=== PATIENT | female | born 1940 | race Caucasian/White ===

== ENCOUNTER 2019-06-16 09:12 | Emergency (ER) | payer MEDICARE ==
--- OUTSIDE RECORDS SUMMARY | 2019-06-16 09:14 | XMS REPORT ---
:1940 [facility] Address [address] [place] [address] [address]. [address] [place] [address] Care Team Providers Name Role Phone Unavailable Unavailable Unavailable Problems This patient has no known problems. Allergies, Adverse Reactions, Alerts This patient has no known allergies or adverse reactions. Medications This patient has no known medications.
[2019-06-16] MEDS ORDERED: DIAZEPAM 10 MG/2 ML INJ SYRINGE ONE (10:00)
[2019-06-16] MEDS ORDERED: METHYLPREDNISOLONE 125 MG INJ ONE (10:00)
[2019-06-16] MEDS ORDERED: KETOROLAC 30 MG/ML INJ ONE (10:00)
[2019-06-16 10:35] LABS: Absolute Lymphocytes (CBC) 1.7 K/uL (0.7-4.9); Hematocrit 39.5 % (36.0-45.0); Lymphocytes % 19.8 % (15.3-44.8); MPV 6.7 fL (7.6-11.3); RBC Red Blood Cell Count 4.28 M/uL (3.86-4.86)
--- NOTE | 2019-06-16 10:38 | RAD REPORT ---
EXAM DESCRIPTION: CT - Spine Lumbar Wo Con - 06/16/2019 10:15 am CLINICAL HISTORY: Back pain, right lower extremity radiculopathy COMPARISON: Two view chest July 2017, lumbar spine June 2015 TECHNIQUE: Thin section axial imaging of the lumbar spine was performed. Sagittal and coronal recon struction images were generated and reviewed. All CT scans are performed using dose optimization technique as appropriate and may include automated exposure control or mA/KV adjustment according to patient size. FINDINGS: Lumbar vertebrae are normal in height. There is very slight retrolisthesis of L2 on L3 and L3 on L4. Approximately 15% wedge compression deformity of T12 is present. Posterior wall height is preserved. The partial compression is not clearly different from 2015. No lytic, blastic or expansile bony destructive changes seen. No paraspinal soft tissue mass component. T11-12 level: No canal or foramen stenosis. Degenerative disc and endplate changes present. T12-L1 level: No canals or foramen stenosis. Facet degenerative changes present. L1-L2 level: Degenerative disc changes with loss in height. Minimal disc bulge seen. No canal or fora men stenosis identified. Facet degenerative changes present. L2-3 level: Loss of disc height is significant. There is degenerative gas in the disc space. Prominen t disc bulge and endplate spurring changes are present. Bilateral foraminal stenosis present from dis c bulge and spurring. Central canal does not appear to be stenotic. There are facet degenerative joy ges present. These are very pronounced with ligamentous thickening changes. L3-4 level: Significant loss in disc height. Circumferential disc bulge and endplate spurring changes present. Facet degenerative changes are prominent. No central spinal stenosis. Bilateral foraminal s tenosis present. L4-5 level: Disc bulge without significant loss in disc height. No central spinal stenosis. Facet deg enerative change and ligamentous thickening present. Foraminal encroachment appears to be mild. L5-S1 level: No herniation or significant disc bulge. No canal or significant foramen stenosis. Facet degenerative changes are present. L3 pars interarticularis defects are present. Partially imaged SI joints show degenerative change but no worrisome finding. Central canal detail is inherently limited. IMPRESSION: No acute lumbar vertebral body finding. Partial compression of T12 appears similar to e 2014 lumbar spine examination. No herniation or significant stenosis in the central canal. Patient has significant foraminal stenosis changes at L2-3 and L3-4. L4-5 foraminal encroachment is p resent to a lesser degree.
[2019-06-16] MEDS ORDERED: ONDANSETRON 4 MG/2 ML VIAL ONE (10:42)
[2019-06-16] MEDS ORDERED: MORPHINE 4 MG/ML SYR ONE (10:42)
[2019-06-16 10:45] LABS: Potassium 3.6 mmol/L (3.5-5.1)
--- NOTE | 2019-06-16 11:53 | ER ---
Nurse's Notes [facility] Name: Sabi Solorzano Age: 79 yrs Sex: Female : 1940 Arrival Date: 06/16/2019 Time: 09:14 Bed 8 Private MD: Deejay Fitzgerald Diagnosis: Sciatica, right side Presentation: 06/16 09:26 Presenting complaint: Patient states: R lower back pain radiating to R buttock and down ph R leg x 1 week, denies falling states, " I was turning putting stuff in my friend's car and I felt something then and after that the pain started.". Transition of care: patient was not received from another setting of care. Onset of symptoms was June 16, 2019. Risk Assessment: Do you want to hurt yourself or someone else? Patient reports no desire to harm self or others. Initial Sepsis Screen: Does the patient meet any 2 criteria? No. Patient's initial sepsis screen is negative. Does the patient have a suspected source of infection? No. Patient's initial sepsis screen is negative. Care prior to arrival: Medication(s) given: Tylenol #3 at 0500. 09:26 Method Of Arrival: Wheelchair ph 09:26 Acuity: MAIA 4 ph Triage Assessment: 09:30 General: Appears in no apparent distress. uncomfortable, well groomed, Behavior is ph calm, cooperative, appropriate for age. Pain: Complains of pain in right low back Pain radiates to right leg Pain currently is 10 out of 10 on a pain scale. Neuro: Level of Consciousness is awake, alert, obeys commands, Oriented to person, place, time, situation. Cardiovascular: Capillary refill < 3 seconds in bilateral fingers Patient's skin is warm and dry. Respiratory: Airway is patent Respiratory effort is even, unlabored, Respiratory pattern is regular, symmetrical. Derm: Skin is intact, is healthy with good turgor, Skin is pink, warm \\T\\ dry. Musculoskeletal: Circulation, motion, and sensation intact. Range of motion: intact in all extremities, Swelling absent. Historical: - Allergies: 09:29 No Known Allergies; ph - PMHx: : Hypertension; Hypothyroidism; Hyperlipidemia; Diabetes - NIDDM; ph - PSHx: Knee surgery; Hysterectomy; ; Carpal Tunnel Repair; ph - Immunization history:: Adult Immunizations unknown. - Social history:: Smoking status: Patient/guardian denies using tobacco. - Ebola Screening: : No symptoms or risks identified at this time. Screenin:32 Abuse screen: Denies threats or abuse. Denies injuries from another. Nutritional ph screening: No deficits noted. Tuberculosis screening: No symptoms or risk factors identified. Fall Risk None identified. Assessment: 09:30 General: SEE TRIAGE ASSESSMENT. ph 10:15 Reassessment: Patient appears in no apparent distress at this time. Patient and/or ph family updated on plan of care and expected duration. Pain level reassessed. Patient is alert, oriented x 3, equal unlabored respirations, skin warm/dry/pink. Pt taken to CT via stretcher. 10:51 Reassessment: Patient appears in no apparent distress at this time. Patient and/or ph family updated on plan of care and expected duration. Pain level reassessed. Patient is alert, oriented x 3, equal unlabored respirations, skin warm/dry/pink. Pt reports that pain has not improved after initial IV pain medication, ERP notified, verbal order for medication received, see MAR. 12:00 Reassessment: Patient appears in no apparent distress at this time. Patient and/or ph family updated on plan of care and expected duration. Pain level reassessed. Patient is alert, oriented x 3, equal unlabored respirations, skin warm/dry/pink. Vital Signs: 09:29 BP 190 / 84; Pulse 72; Resp 18; Temp 98.0; Pulse Ox 95% on R/A; Weight 92.08 kg; Height ph 5 ft. 7 in. (170.18 cm); Pain 10/10; 09:33 BP 161 / 80; ph 10:52 BP 172 / 64; Pulse 61; Resp 18; Pulse Ox 87% on R/A; ph 10:58 BP 141 / 57; Pulse 58; Resp 16; Pulse Ox 97% on 2 lpm NC; ph 12:15 BP 138 / 62; Pulse 59; Resp 18; Temp 97.8; Pulse Ox 99% on R/A; ph 09:29 Body Mass Index 31.79 (92.08 kg, 170.18 cm) ph 10:52 pt placed on 2L NC, improved to 95% ph ED Course: 09:14 Patient arrived in ED. mr 09:15 Doug Dee MD is Attending Physician. kdr 09:15 Deejay Fitzgerald MD is Private Physician. mr 09:26 Tracie More, RN is Primary Nurse. ph 09:28 Triage completed. ph 09:30 Arm band placed on Patient placed in an exam room, on a stretcher. ph 09:31 Patient has correct armband on for positive identification. Bed in low position. Call ph light in reach. Side rails up X 1. Pulse ox on. NIBP on. Door closed. Noise minimized. Warm blanket given. 10:10 Inserted saline lock: 20 gauge in right antecubital area, using aseptic technique. ph Blood collected. 10:16 CT Lumbar Spine Wo Con In Process Unspecified. EDMS 11:52 Deejay Fitzgerald MD is Referral Physician. kdr 12:25 No provider procedures requiring assistance completed. IV discontinued, intact, ph bleeding controlled, No redness/swelling at site. Pressure dressing applied. Administered Medications: 10:10 Drug: SOLU-Medrol 125 mg Route: IVP; Site: right antecubital; ph 10:30 Follow up: Response: No adverse reaction ph 10:10 Drug: TORadol - Ketorolac 15 mg Route: IVP; Site: right antecubital; ph 10:35 Follow up: Response: No adverse reaction; Pain is unchanged, physician notified ph 10:50 Drug: morphine 4 mg Route: IVP; Site: right antecubital; ph 11:00 Follow up: Response: No adverse reaction; Pain is decreased; RASS: Alert and Calm (0) ph 10:50 Drug: Zofran 4 mg Route: IVP; Site: right antecubital; ph 11:30 Follow up: Response: No adverse reaction ph 12:24 Not Given (Other Intervention Used): Valium 5 mg IVP once; Oon call to CT ph Outcome: 11:52 Discharge ordered by . kdr 12:25 Patient left the ED. ph 12:25 Discharged to home via wheelchair, with family. ph 12:25 Condition: improved 12:25 Discharge instructions given to patient, Instructed on discharge instructions, follow up and referral plans. medication usage, Demonstrated understanding of instructions, follow-up care, medications, Prescriptions given X 4. Signatures: Dispatcher [employer] EDUT Doug Dee MD MD kdr Rivera, Mary mr Tracie More, DANELLE RN ph
--- NOTE | 2019-06-16 11:53 | EDPHYS ---
Physician Documentation [facility] Name: Sabi Solorzano Age: 79 yrs Sex: Female : 1940 Arrival Date: 06/16/2019 Time: 09:14 Bed 8 Private MD: Deejay Fitzgerald ED Physician Doug Dee HPI: 06/16 09:55 This 79 yrs old Female presents to ER via Wheelchair with complaints of Leg kdr Pain, Back Pain. 09:55 The patient presents with pain, that is acute. The complaints affect the right kdr hamstring, posterior aspect of right knee, right calf and right Achilles. Context: The problem was sustained at home, resulted from Twisting of torso, the patient can partially bear weight, must have assistance. Onset: The symptoms/episode began/occurred gradually, 4 day(s) ago. Modifying factors: The symptoms are alleviated by remaining still, the symptoms are aggravated by movement, weight bearing, Leg lift. Associated signs and symptoms: Pertinent positives: pain to right posterior leg that starts in her lumbar region and then radiates through the buttock and down her right leg posteriorly. The pain is constant but is better when she remains still and worse with movement or weight bearing. Severity of symptoms: At their worst the symptoms were mild, moderate, in the emergency department the symptoms are unchanged. The patient has not experienced similar symptoms in the past. The patient is finishing rehab (PT) for left knee replacement. Otherwise she is without problem. Historical: - Allergies: 09:29 No Known Allergies; ph - PMHx: 09:29 Hypertension; Hypothyroidism; Hyperlipidemia; Diabetes - NIDDM; ph - PSHx: 09:29 Knee surgery; Hysterectomy; ; Carpal Tunnel Repair; ph - Immunization history:: Adult Immunizations unknown. - Social history:: Smoking status: Patient/guardian denies using tobacco. - Ebola Screening: : No symptoms or risks identified at this time. ROS: 09:55 Constitutional: Negative for fever, chills, and weight loss, Eyes: Negative for injury, kdr pain, redness, and discharge, Neck: Negative for injury, pain, and swelling, Cardiovascular: Negative for chest pain, palpitations, and edema, Respiratory: Negative for shortness of breath, cough, wheezing, and pleuritic chest pain, Abdomen/GI: Negative for abdominal pain, nausea, vomiting, diarrhea, and constipation, Back: Negative for injury and pain, : Negative for injury, bleeding, discharge, and swelling, Skin: Negative for injury, rash, and discoloration, Neuro: Negative for headache, weakness, numbness, tingling, and seizure activity. Psych: Negative for depression, anxiety, suicide ideation, homicidal ideation, and hallucinations, Allergy/Immunology: Negative for hives, rash, and allergies, Endocrine: Negative for neck swelling, polydipsia, polyuria, polyphagia, and marked weight changes, Hematologic/Lymphatic: Negative for swollen nodes, abnormal bleeding, and unusual bruising. 09:55 MS/extremity: Positive for decreased range of motion, pain, of the coccyx, right gluteus ambreen, right gluteal fold, right hamstring, posterior aspect of right knee, right calf and right Achilles. Exam: 09:55 Constitutional: This is a well developed, well nourished patient who is awake, alert, kdr and in no acute distress. Head/Face: Normocephalic, atraumatic. 09:55 Back: pain, that is mild, that is moderate, of the low back area and right low back, ROM is painful, normal spinal alignment noted, CVA tenderness, is absent, vertebral tenderness, is not appreciated, Straight leg raises: left lower extremity does not illicit pain, right lower extremity illicits pain, at 30 degrees. Vital Signs: 09:29 BP 190 / 84; Pulse 72; Resp 18; Temp 98.0; Pulse Ox 95% on R/A; Weight 92.08 kg; Height ph 5 ft. 7 in. (170.18 cm); Pain 10/10; 09:33 BP 161 / 80; ph 10:52 BP 172 / 64; Pulse 61; Resp 18; Pulse Ox 87% on R/A; ph 10:58 BP 141 / 57; Pulse 58; Resp 16; Pulse Ox 97% on 2 lpm NC; ph 12:15 BP 138 / 62; Pulse 59; Resp 18; Temp 97.8; Pulse Ox 99% on R/A; ph 09:29 Body Mass Index 31.79 (92.08 kg, 170.18 cm) ph 10:52 pt placed on 2L NC, improved to 95% ph MDM: 09:55 Data reviewed: vital signs, nurses notes. kdr 11:52 Patient medically screened. kdr 06/16 09:55 Order name: CBC with Diff; Complete Time: 10:53 kdr 06/16 09:55 Order name: Chem 7; Complete Time: 10:53 kdr 06/16 09:55 Order name: CT Lumbar Spine Wo Con; Complete Time: 10:53 kdr Administered Medications: 10:10 Drug: SOLU-Medrol 125 mg Route: IVP; Site: right antecubital; ph 10:30 Follow up: Response: No adverse reaction ph 10:10 Drug: TORadol - Ketorolac 15 mg Route: IVP; Site: right antecubital; ph 10:35 Follow up: Response: No adverse reaction; Pain is unchanged, physician notified ph 10:50 Drug: morphine 4 mg Route: IVP; Site: right antecubital; ph 11:00 Follow up: Response: No adverse reaction; Pain is decreased; RASS: Alert and Calm (0) ph 10:50 Drug: Zofran 4 mg Route: IVP; Site: right antecubital; ph 11:30 Follow up: Response: No adverse reaction ph 12:24 Not Given (Other Intervention Used): Valium 5 mg IVP once; Oon call to CT ph Disposition: 06/16/19 11:52 Discharged to Home. Impression: Sciatica, right side. - Condition is Stable. - Discharge Instructions: Sciatica, [id number], Back Exercises, [id number], Radicular Pain. - Prescriptions for Ibuprofen 600 mg Oral Tablet - take 1 tablet by ORAL route every 6 hours As needed take with food; 30 tablet. Tylenol- Codeine #3 300-30 mg Oral Tablet - take 2 tablets by ORAL route every 4-6 hours As needed Take one or two tablets every four to six hours as needed from pain; 20 tablet. Medrol (Home) 4 mg Oral Tablets, Dose Pack - take 1 tablet by ORAL route as directed - follow package instructions; 1 packet. Cyclobenzaprine 5 mg Oral Tablet - take 1 tablet by ORAL route 3 times per day As needed; 15 tablet. - Medication Reconciliation Form, Thank You Letter, Prescription Opioid Use form. - Follow up: Deejay Fitzgerald MD; When: 2 - 3 days; Reason: If symptoms return, Further diagnostic work-up, Recheck today's complaints, Continuance of care, Re-evaluation by your physician. - Problem is new. - Symptoms have improved. Signatures: Dispatcher [employer] EDMS Doug Dee MD MD kdr Tracie More RN RN ph Corrections: (The following items were deleted from the chart) 12:25 11:52 06/16/2019 11:52 Discharged to Home. Impression: Sciatica, right side. Condition ph is Stable. Forms are Medication Reconciliation Form, Thank You Letter, Antibiotic Education, Prescription Opioid Use. Follow up: Deejay Fitzgerald; When: 2 - 3 days; Reason: If symptoms return, Further diagnostic work-up, Recheck today's complaints, Continuance of care, Re-evaluation by your physician. Problem is new. Symptoms have improved. kdr
[2019-06-16 13:02] VITALS: TEMP 98
[2019-06-16 13:06] VITALS: BP 141/57; O2SAT 97
== END 2019-06-16 12:25 | disposition home or self-care (01) ==
LOC: ER 09:12
DX: M54.31 Sciatica, right side (principal); I10 Essential (primary) hypertension
CPT/HCPCS: 85025; 80048; 36415; 72131; 96375; 96374; 99284; J2930; J2405; J3360

== ENCOUNTER 2019-06-20 14:02 | Observation (INO) | payer MEDICARE ==
--- OUTSIDE RECORDS SUMMARY | 2019-06-20 14:14 | XMS REPORT ---
:1940 [facility] Address [address] [place] [address] [address] [place] [address] Care Team Providers Name Role Phone Unavailable Unavailable Unavailable Problems This patient has no known problems. Allergies, Adverse Reactions, Alerts This patient has no known allergies or adverse reactions. Medications This patient has no known medications.
[2019-06-20 14:31] VITALS: BMI 30.7
[2019-06-20] MEDS ORDERED: ONDANSETRON 4 MG/2 ML VIAL IV PRN (14:53)
[2019-06-20] MEDS ORDERED: GLUCAGON 1 MG/VIAL IM PRN (14:59)
[2019-06-20] MEDS ORDERED: D50W 25 GM/50 ML SYRINGE/VIAL IV PRN (14:59)
[2019-06-20] MEDS ORDERED: ALPRAZOLAM 1 MG TABLET PO PRN (15:04)
[2019-06-20 15:10] LABS: Absolute Lymphocytes (CBC) 2.7 K/uL (0.7-4.9); Basophils % 0.7 % (0-1.3); Lymphocytes % 19.5 % (15.3-44.8); MPV 6.7 fL (7.6-11.3); RBC Red Blood Cell Count 4.57 M/uL (3.86-4.86)
[2019-06-20 15:36] LABS: Urine Appearance CLEAR; Urine Bilirubin NEGATIVE (NEG); Urine Blood NEGATIVE (NEG); Urine Color YELLOW; Urine Glucose NEGATIVE (NEG); Urine Protein NEGATIVE (NEG); Urine Urobilinogen 0.2 mg/dL (0.2-1.0)
[2019-06-20 15:49] LABS: Urine Microscopic Reflex NO UMIC
[2019-06-20] MEDS ORDERED: lisinopriL 10 MG TAB PO SCH (16:00)
[2019-06-20] MEDS: CODEINE 30MG/APAP 300MG TAB PO PRN (16:03)
[2019-06-20] MEDS: MORPHINE 4 MG/ML SYR IV PRN (16:26)
[2019-06-20] MEDS: NA CHLORIDE 0.9% 1,000 ML IV SCH (16:27)
[2019-06-20] MEDS: METHYLPREDNISOLONE 125 MG INJ IV SCH (16:27)
[2019-06-20] MEDS: INSULIN -REGULAR HUMAN 50 UNIT/0.5 ML ML SQ SCH ×2 (16:30→20:37)
[2019-06-20] MEDS ORDERED: METHYLPREDNISOLONE 125 MG INJ IV SCH (17:00)
[2019-06-20] MEDS: METHOCARBAMOL 1,000 MG in NA CHLORIDE 0.9% 100 ML IV SCH (18:30)
[2019-06-20] MEDS ORDERED: cloNIDine HCL 0.1 MG TAB PO PRN (18:37)
[2019-06-20] MEDS: ATORVASTATIN 10 MG TAB PO SCH (20:36)
--- NOTE | 2019-06-20 20:36 | RAD REPORT ---
EXAM DESCRIPTION: MRI - Spine Lumbar W/Wo Cont - 06/20/2019 8:07 pm CLINICAL HISTORY: Back pain, lower extremity radiculopathy COMPARISON: CT lumbar spine June 16 TECHNIQUE: Sagittal T1-weighted, T2-weighted and T2-STIR weighted sequences were obtained. Axial T1- weighted and heavily T2-weighted sequences were obtained through the lumbar disc levels. Sagittal and axial post-contrast. T1-weighted images were obtained following 20ml MultiHance contrast material. FINDINGS: Mild volume loss seen superior endplate T12. Scattered marrow degenerative changes present throughout the lumbar spine. No marrow edema or marrow replacing process. No paraspinal mass. Conus is normal with no clumping or thickening of the cauda equina. T12-L1 level: Disc desiccation mild disc bulge. No canal or foramen stenosis. L1-2 level: Disc thinning and disc desiccation with disc bulge. No canal or foramen stenosis. L2-3 level: Significant loss in disc height and disc desiccation. Large anterior disc herniation with endplate spurring. Patient has a baseline of significant circumferential bulging of disc material. D isc bulge in each exit foramen results in moderate foraminal stenosis. There is a large inferiorly di rected midline and right-sided disc herniation. This extends inferiorly along the posterior wall L3. There is flattening of the thecal sac. Central canal is stenotic at 6- 7 mm. . Facet degenerative billy nge and ligamentous thickening are present. L3-4 level: Disc is thinned and desiccated. Circumferential bulging of disc material and endplate spu rring are present. Moderate severe foraminal stenosis present bilaterally. Central canal is not steno tic. L4-5 level: Disc is desiccated without loss of disc height. Disc bulge is present across the central canal. There is moderately severe left foraminal stenosis and minimal right foraminal stenosis. No st enosis of the canal. Facet degenerative changes mild. L5-S1 level: No herniation disc bulge. No canal or foramen stenosis. Post-contrast view show no abnormal enhancement. There is enhancement around the herniated disc which is typically seen. IMPRESSION: Large L2-3 midline and right-sided disc herniation extending inferiorly along the security threat analyst ior wall of L3. This causes significant flattening of the thecal sac. Additional disc bulge, facet hypertrophy and ligamentous thickening at L2-3 causes spinal stenosis to 6-7 mm. Degenerative changes are present at all disc levels. Patient has significant multilevel foraminal stenosis detailed at each level in the body of the repor t. Marrow degenerative change throughout the lumbar spine. No acute compression fracture or acute enhanc ement pattern.
[2019-06-20] MEDS: AMLODIPINE 5 MG TAB PO SCH (20:37)
[2019-06-20] MEDS: lisinopriL 20 MG TAB PO SCH (20:37)
--- NOTE | 2019-06-20 20:38 | RAD REPORT ---
EXAM DESCRIPTION: MRI - MRI SACRUM W/WO - 06/20/2019 8:10 pm CLINICAL HISTORY: BACK PAINlower extremity radiculopathy COMPARISON: None. TECHNIQUE: Multiplanar imaging of the sacrum performed using T1 weighted, T2 weighted, T1 stir and T 2 fat saturation sequencing. Post-contrast T1 fat saturation sequences were obtained following a 17 m illiliter MultiHance contrast volume. FINDINGS: The sacrum and coccyx segments show no marrow edema or marrow replacing process. Hemangiom a is seen in the anterior aspect of S1 and throughout the majority of the S3 sacral body. Degenerativ e changes are present in the lower coccygeal segments. There is no prevertebral soft tissue thickening present. No sacral ala abnormality. No fluid or activ e signal changes in the SI joints. No soft tissue masses are identified. Rectum and bladder show no s uspicious findings. Post-contrast view show no abnormal enhancement. IMPRESSION: Contrast enhanced sacrum and coccyx imaging shows no significant or suspicious finding. Please see significant findings in the MRI lumbar spine report.
[2019-06-21] MEDS: METHYLPREDNISOLONE 125 MG INJ IV SCH ×4 (00:10→23:52)
[2019-06-21] MEDS: MORPHINE 4 MG/ML SYR IV PRN ×3 (00:11→20:53)
[2019-06-21] MEDS: METHOCARBAMOL 1,000 MG in NA CHLORIDE 0.9% 100 ML IV SCH ×4 (01:07→23:52)
[2019-06-21] MEDS: PANTOPRAZOLE 40MG TABLET PO SCH (05:43)
[2019-06-21] MEDS: LEVOTHYROXINE SOD 0.025 MG TAB PO SCH (05:43)
[2019-06-21] MEDS: LEVOTHYROXINE SOD 0.112 MG TAB PO SCH (05:43)
[2019-06-21] MEDS: CODEINE 30MG/APAP 300MG TAB PO PRN ×4 (05:49→23:59)
[2019-06-21] MEDS ORDERED: LEVOTHYROXINE SOD 0.125 MG TAB PO SCH (06:00)
--- NOTE | 2019-06-21 06:18 | HP ---
Date of Admission: 06/20/2019 Chief Complaint: Back pain. History Of Present Illness: Patient presented to the office with a 3- to 4-day history of progressiv e back pain. Today, it became increasingly uncomfortable so that she could not straighten up. She w alked bent over mainly in the lumbosacral area with some radiation down into the buttocks. Patient was seen in the emergency room the day before, at which time she was given morphine, which sh magali said did not relieve the pain. However, as mentioned it became increasingly more severe over the n ext [address] scan did reveal some significant narrowing and disk disease. Past History: Patient recently underwent a successful knee transplant, had a minimal discomfort post operatively, was doing quite well when she notes she had turned a little bit awkwardly while driving and noticed some pain in the back. However, she has not paid that much attention to it until it jimi me increasingly uncomfortable and stiffer and presented as above. Patient has hypertension, which is controlled and as mentioned recent surgical procedure. Physical Examination: General: Patient is an obviously distressed elderly female in acute pain with stable vital signs. Head and Neck: Normocephalic. Pupils equal and reactive to light and accommodation. Fundi negative . Trachea midline. Thyroid not palpable. ENT: Negative. Chest: Clear to P and A. Cardiovascular: PMI midclavicular line. Heart: Sounds normal. Peripheral pulses present and equal bilaterally. Abdomen: No organomegaly. Bowel sounds present. Extremities: Marked tenderness in lumbosacral area. Decreased flexion and extension in lumbosacral area. Decreased straight leg raising bilaterally. Reflexes are hyporeflexic. Rectal/Pelvic: Deferred. Impression: Acute back sprain, herniated disk. Plan: Patient will be admitted, placed on IV steroids, IV analgesics, and muscle relaxants. An MRI will be scheduled. Depending on the results, patient may be hospitalized within the next day or so. HR/MODL Voice ID: [id number]
[2019-06-21] MEDS: INSULIN -REGULAR HUMAN 50 UNIT/0.5 ML ML SQ SCH ×4 (07:30→21:00)
[2019-06-21] MEDS: AMLODIPINE 5 MG TAB PO SCH (08:32)
[2019-06-21] MEDS: hydroCHLOROthiazide 12.5 MG CAP PO SCH (08:33)
[2019-06-21] MEDS: METFORMIN HCL 500 MG TAB PO SCH (08:33)
[2019-06-21] MEDS: ASPIRIN 81 MG CHEWABLE TABLET PO SCH (08:33)
[2019-06-21] MEDS: lisinopriL 20 MG TAB PO SCH (20:53)
[2019-06-21] MEDS: ATORVASTATIN 10 MG TAB PO SCH (20:53)
--- NOTE | 2019-06-21 21:22 | PN ---
Date of Progress Note: 06/21/2019 The patient is comfortable as long as she is lying still, however, any movement at all such as going to the bathroom creates significant amount of pain. Her MRI showed a large herniated disk in the lum bosacral area, which needs to be addressed probably surgical, however, is not available obviously for further workup as of the , so I feel she takes steroids for another 24 hours and her sugar has been stable and she could go home tomorrow on her Tylenol No. 3 and will follow up wit h the neurosurgeon on Wednesday. HR/MODL Voice ID: [id number] Report ID: [id number]
[2019-06-21] MEDS: NA CHLORIDE 0.9% 1,000 ML IV SCH (23:53)
[2019-06-22] MEDS: PANTOPRAZOLE 40MG TABLET PO SCH (06:42)
[2019-06-22] MEDS: LEVOTHYROXINE SOD 0.025 MG TAB PO SCH (06:42)
[2019-06-22] MEDS: LEVOTHYROXINE SOD 0.112 MG TAB PO SCH (06:42)
[2019-06-22] MEDS: INSULIN -REGULAR HUMAN 50 UNIT/0.5 ML ML SQ SCH ×2 (07:30→11:30)
[2019-06-22] MEDS: ASPIRIN 81 MG CHEWABLE TABLET PO SCH (08:18)
[2019-06-22] MEDS: METHYLPREDNISOLONE 125 MG INJ IV SCH (08:18)
[2019-06-22] MEDS: AMLODIPINE 5 MG TAB PO SCH (08:18)
[2019-06-22] MEDS: hydroCHLOROthiazide 12.5 MG CAP PO SCH (08:18)
[2019-06-22] MEDS: METFORMIN HCL 500 MG TAB PO SCH (08:18)
[2019-06-22] MEDS: CODEINE 30MG/APAP 300MG TAB PO PRN (08:24)
[2019-06-22] MEDS: METHOCARBAMOL 1,000 MG in NA CHLORIDE 0.9% 100 ML IV SCH (10:00)
[2019-06-22 12:01] VITALS: BP 140/60; TEMP 97.6
[2019-06-22 12:26] VITALS: O2SAT 95
--- NOTE | 2019-06-22 20:39 | DS ---
Date of Discharge: 06/22/2019 Discharge Diagnoses: 1.Acute herniated disk, L2-L3 with flattening of the thecal sac. 2.Degenerative disk disease. 3.Osteoarthritis of the knee. 4.Leukocytosis with neutrophilia. 5.Thrombocytosis. 6.Hyperglycemia. 7.Obesity, body mass index 30. Hospital Course: Patient is a 79-year-old female, patient of Dr. Fitzgerald, who was admitted due to pr ogressive back pain. MRI was done and she was found to have herniated disk, L2-L3. She was started on IV analgesia and IV steroids. Patient had improvement in her symptoms. Her symptoms improved sig nificantly. She was able to ambulate without much difficulty. Hospitalist service covering for Dr. Fitzgerald during the holiday. Patient was then cleared for discharge as her pain was controlled. She will be on Tylenol No. [address] Fitzgerald. She will be on steroid taper. She will need to follow up with Dr. Fitzgerald on Wednesday. Follow up with Neurosurgery in 1-2 weeks. She will be referre d by her PCP. Return to ER for worsening condition. Diet: Heart healthy. Activity: No driving or operating heavy machinery while on narcotics and benzodiazepines. Physical Examination: General: Awake, alert, oriented x3, obese female. CV: S1, S2. Respiratory: Moving air well bilaterally. Abdomen: Soft, nontender, nondistended. Positive bowel sounds. Extremities: No clubbing, cyanosis, edema. Neuro: Nonfocal. SA/MODL Voice ID: [id number] Report ID: [id number]
== END 2019-06-22 12:05 | disposition home or self-care (01) ==
LOC: 4TH 14:11
PROVIDERS: ADMIT Family Medicine; ATTEND Family Medicine
DX: M51.26 Other intervertebral disc displacement, lumbar region (principal); M51.36 Other intervertebral disc degeneration, lumbar region; M17.10 Unilateral primary osteoarthritis, unspecified knee; D47.3 Essential (hemorrhagic) thrombocythemia; R73.9 Hyperglycemia, unspecified; E66.9 Obesity, unspecified; Z68.30 Body mass index [BMI] 30.0-30.9, adult
CPT/HCPCS: 36415; 72158; 72197; 80048; 81003; 82947; 85025; A9577; G0378; J2800; J2930; J7030